=== PATIENT | male | born 1965 | race African-American/Black ===

== ENCOUNTER 2018-05-01 23:28 | Emergency (ER) | payer SELFPAY ==
[~2018-05-01] VITALS: Ht 185.4 cm; Wt 82.6 kg
[2018-05-01 23:29] VITALS: BP 111/74
--- NOTE | 2018-05-01 23:30 | NUR ---
ZACKARY GARVEY in custody to [facility].
[2018-05-01 23:55] VITALS: BP 111/82
--- NOTE | 2018-05-01 23:55 | NUR ---
Patient discharged with v/s stable. Written and verbal after care instructions given and explained. Patient verbalized understanding. Police with in custody. All questions addressed prior to discharge. Advised to follow up with PMD.
== END 2018-05-01 23:55 ==
LOC: MED 23:28
DX: Z02.89 Encounter for other administrative examinations (principal); V89.2XXA Person injured in unspecified motor-vehicle accident, traffic, initial encounter; Y93.I9 Activity, other involving external motion; Y92.488 Other paved roadways as the place of occurrence of the external cause; Y99.8 Other external cause status
CPT/HCPCS: 99283